=== PATIENT | male | born 1955 | race Caucasian/White ===

== ENCOUNTER 2020-09-12 18:31 | Inpatient (IN) | payer MEDICAID, OTHER ==
[~2020-09-12] VITALS: Ht 172.7 cm; Wt 100.8 kg
--- NOTE | 2020-09-12 18:55 | NUR ---
received report from EFREN Howard. patient c/o abdominal and lower extremities swelling x 3 weeks. Hx of CHF. non complaint with his medication.
[2020-09-12] MEDS ORDERED: ONDANSETRON 2MG/ML, 2ML IVPush PRN (19:00)
[2020-09-12] MEDS ORDERED: PROMETHAZINE 25 MG/ML, 1ML IM PRN (19:00)
[2020-09-12] MEDS ORDERED: ONDANSETRON ODT 4 MG PO PRN (19:00)
[2020-09-12] MEDS ORDERED: OXYcodone IR 5MG TABLET PO PRN (19:00)
[2020-09-12] MEDS ORDERED: BISACODYL 10 MG SUPP PR PRN (19:00)
[2020-09-12] MEDS ORDERED: ACETAMINOPHEN 325 MG TABLET PO PRN (19:00)
[2020-09-12] MEDS ORDERED: DOCUSATE 100 MG CAPSULE PO PRN (19:00)
[2020-09-12] MEDS ORDERED: hydrALAzine 20 MG/ML, 1ML IVPush PRN (19:00)
[2020-09-12] MEDS ORDERED: FUROSEMIDE 20 MG/2 ML IV ONE (19:00)
[2020-09-12] MEDS ORDERED: POLYETHYLENE GLYCOL 17 GM PACKET PO PRN (19:00)
[2020-09-12 19:18] LABS: BASOPHILS % (AUTO) 1 % (0-1); EOSINOPHILS % (AUTO) 2 % (1-7); LYMPHOCYTES % (AUTO) 18 % (22-44); MEAN CORPUSCULAR HEMOGLOBIN 33.2 pg (27.5-34.5); MEAN CORPUSCULAR HGB CONC 32.6 g/dL (33.2-36.2); MEAN PLATELET VOLUME 8.7 fL (7.4-10.4); MONOCYTES % (AUTO) 13 % (2-9); NEUTROPHILS % (AUTO) 66 % (42-75); PLATELET COUNT 205 x10^3/uL (130-400); RED BLOOD COUNT 4.42 x10^6/uL (4.38-5.82); RED CELL DISTRIBUTION WIDTH 15.7 % (9.4-14.8)
[2020-09-12 19:20] LABS: MD NO
[2020-09-12 19:29] LABS: ALANINE AMINOTRANSFERASE 59 U/L (12-78); ALBUMIN 2.9 g/dL (3.4-5.0); ANION GAP 6 mmol/L (5-15); CALCIUM 8.4 mg/dL (8.5-10.1); CHLORIDE 112 mmol/L (98-107); CREATININE 2.68 mg/dL (0.7-1.3)
[2020-09-12 19:33] LABS: ALKALINE PHOSPHATASE 116 U/L (45-117); BILIRUBIN,TOTAL 0.6 mg/dL (0.2-1.0); TOTAL PROTEIN 6.5 g/dL (6.4-8.2)
[2020-09-12 19:35] LABS: TROPONIN I 0.529 ng/mL (0.000-0.045)
--- NOTE | 2020-09-12 19:50 | NUR ---
bed assigned. report to EFREN Ramires.
[2020-09-12 20:10] VITALS: BP 134/80
[2020-09-12] MEDS ORDERED: ENOXAPARIN 30 MG/0.3 ML SQ SCH (20:30)
[2020-09-12] MEDS: ATORVASTATIN 80 MG TABLET PO SCH (21:30)
[2020-09-12] MEDS: APIXABAN 5 MG TABLET PO SCH (21:30)
[2020-09-12] MEDS ORDERED: APIX5TAB PO (21:48)
[2020-09-12] MEDS ORDERED: METO25TA91 PO (21:48)
[2020-09-12] MEDS ORDERED: LOSA25TA25 PO (21:48)
[2020-09-12] MEDS ORDERED: ATOR80TA PO (21:48)
[2020-09-12] MEDS ORDERED: AMIO400T5 PO (21:48)
[2020-09-12] MEDS ORDERED: CLOP75TA PO (21:48)
[2020-09-12] MEDS ORDERED: DIGO125T85 PO (21:48)
[2020-09-12] MEDS ORDERED: NITR0.4T28 SL (21:48)
[2020-09-12 23:25] VITALS: BP_SYST 158; BP_SYST 164; BP_DIAS 111; BP_DIAS 113
[2020-09-13 00:52] VITALS: BP 150/95
[2020-09-13 01:13] LABS: TROPONIN I 0.386 ng/mL (0.000-0.045)
[2020-09-13 04:45] LABS: BASOPHILS % (AUTO) 1 % (0-1); EOSINOPHILS % (AUTO) 2 % (1-7); LYMPHOCYTES % (AUTO) 23 % (22-44); MEAN CORPUSCULAR HEMOGLOBIN 33.7 pg (27.5-34.5); MEAN CORPUSCULAR HGB CONC 33.5 g/dL (33.2-36.2); MEAN PLATELET VOLUME 8.7 fL (7.4-10.4); MONOCYTES % (AUTO) 15 % (2-9); NEUTROPHILS % (AUTO) 59 % (42-75); PLATELET COUNT 195 x10^3/uL (130-400); RED BLOOD COUNT 4.24 x10^6/uL (4.38-5.82); RED CELL DISTRIBUTION WIDTH 15.6 % (9.4-14.8)
[2020-09-13 04:48] LABS: MD NO
[2020-09-13 04:56] LABS: CALCIUM 8.5 mg/dL (8.5-10.1); CHLORIDE 110 mmol/L (98-107)
[2020-09-13 05:07] LABS: ALANINE AMINOTRANSFERASE 57 U/L (12-78); ALBUMIN 2.8 g/dL (3.4-5.0); ALKALINE PHOSPHATASE 108 U/L (45-117); ANION GAP 8 mmol/L (5-15); BILIRUBIN,TOTAL 0.9 mg/dL (0.2-1.0); CHOL/HDL RATIO 4.9; CHOLESTEROL, TOTAL 157 mg/dL (140-239); CREATININE 2.61 mg/dL (0.7-1.3); HDL CHOL % 20 % (26-37); HDL CHOLESTEROL (DIRECT) 32 mg/dL (40-60); LDL CHOLESTEROL,CALCULATED 113 mg/dL (54-169); LDL/HDL RATIO 3.5 (0.5-3.0); TOTAL PROTEIN 5.9 g/dL (6.4-8.2); TRIGLYCERIDES 60 mg/dL (50-200); TROPONIN I 0.321 ng/mL (0.000-0.045); VLDL CHOLESTEROL 12 mg/dL (0-25)
[2020-09-13] MEDS: METOPROLOL TARTRATE 25 MG TAB PO SCH ×2 (05:21→17:24)
[2020-09-13 07:16] VITALS: BP 161/105
[2020-09-13 07:27] LABS: TROPONIN I 0.347 ng/mL (0.000-0.045)
[2020-09-13] MEDS ORDERED: FUROSEMIDE 20 MG/2 ML IV SCH (09:00)
[2020-09-13] MEDS ORDERED: FUROSEMIDE 40 MG/4 ML IV SCH (09:00)
[2020-09-13] MEDS: CLOPIDOGREL 75 MG TABLET PO SCH (12:26)
[2020-09-13] MEDS: APIXABAN 5 MG TABLET PO SCH ×3 (12:27→21:32)
[2020-09-13 13:18] VITALS: BP 161/100
[2020-09-13 19:23] VITALS: BP 144/91
[2020-09-13] MEDS: ATORVASTATIN 80 MG TABLET PO SCH ×2 (21:00→21:32)
[2020-09-13] MEDS: AMIODARONE 200 MG TABLET PO SCH ×2 (21:00→21:33)
[2020-09-13] MEDS: FUROSEMIDE 40 MG/4 ML IV SCH (21:32)
[2020-09-14 02:32] VITALS: BP 150/85
[2020-09-14 04:52] LABS: BASOPHILS % (AUTO) 1 % (0-1); EOSINOPHILS % (AUTO) 2 % (1-7); LYMPHOCYTES % (AUTO) 18 % (22-44); MEAN CORPUSCULAR HEMOGLOBIN 33.8 pg (27.5-34.5); MEAN CORPUSCULAR HGB CONC 33.7 g/dL (33.2-36.2); MEAN PLATELET VOLUME 8.8 fL (7.4-10.4); MONOCYTES % (AUTO) 15 % (2-9); NEUTROPHILS % (AUTO) 65 % (42-75); PLATELET COUNT 209 x10^3/uL (130-400); RED BLOOD COUNT 4.51 x10^6/uL (4.38-5.82); RED CELL DISTRIBUTION WIDTH 15.6 % (9.4-14.8)
[2020-09-14 04:53] LABS: MD NO
[2020-09-14 04:58] LABS: ANION GAP 6 mmol/L (5-15); CALCIUM 8.8 mg/dL (8.5-10.1); CHLORIDE 106 mmol/L (98-107); CREATININE 2.65 mg/dL (0.7-1.3)
[2020-09-14] MEDS: METOPROLOL TARTRATE 25 MG TAB PO SCH ×3 (05:03→21:17)
[2020-09-14 07:58] VITALS: BP 156/103
[2020-09-14] MEDS: APIXABAN 5 MG TABLET PO SCH ×2 (09:00→21:15)
[2020-09-14] MEDS: LOSARTAN 25MG TABLET PO SCH (09:00)
[2020-09-14] MEDS: AMIODARONE 200 MG TABLET PO SCH ×2 (09:00→21:00)
[2020-09-14] MEDS: CLOPIDOGREL 75 MG TABLET PO SCH (09:00)
[2020-09-14] MEDS: DIGOXIN 0.125 MG TABLET PO SCH (09:00)
[2020-09-14] MEDS: FUROSEMIDE 40 MG/4 ML IV SCH ×2 (09:38→21:14)
[2020-09-14 11:11] VITALS: BP 147/100
[2020-09-14 12:46] VITALS: BP 145/104
[2020-09-14] MEDS ORDERED: FUROSEMIDE 40 MG/4 ML IV ONE (15:00)
[2020-09-14 18:46] VITALS: BP 152/86
[2020-09-14] MEDS: ATORVASTATIN 80 MG TABLET PO SCH (21:15)
[2020-09-15 00:38] VITALS: BP 143/86
[2020-09-15 04:46] LABS: ANION GAP 5 mmol/L (5-15); CALCIUM 8.4 mg/dL (8.5-10.1); CHLORIDE 107 mmol/L (98-107)
[2020-09-15] MEDS: METOPROLOL TARTRATE 25 MG TAB PO SCH (05:48)
[2020-09-15] MEDS ORDERED: FURO-92 PO (07:10)
[2020-09-15] MEDS ORDERED: POTA20TA14 PO (07:11)
[2020-09-15 07:22] VITALS: BP 138/88
[2020-09-15] MEDS: FUROSEMIDE 40 MG/4 ML IV SCH (08:52)
[2020-09-15] MEDS: DIGOXIN 0.125 MG TABLET PO SCH (08:54)
[2020-09-15] MEDS: LOSARTAN 25MG TABLET PO SCH (08:54)
[2020-09-15] MEDS: APIXABAN 5 MG TABLET PO SCH (08:54)
[2020-09-15] MEDS: CLOPIDOGREL 75 MG TABLET PO SCH (08:54)
[2020-09-15] MEDS: AMIODARONE 200 MG TABLET PO SCH (08:54)
== END 2020-09-15 10:05 | disposition home or self-care (01) | DRG 280 ==
LOC: ED 18:35 → EDIP 18:42 → ED 19:30 → 5SO 20:05 → DCLOUNGE 09-15 09:55
PROVIDERS: ADMIT Internal Medicine; ATTEND Family Medicine
DX: I13.0 Hypertensive heart and chronic kidney disease with heart failure and stage 1 through stage 4 chronic kidney disease, or unspecified chronic kidney disease (principal); I21.A1 Myocardial infarction type 2; I50.43 Acute on chronic combined systolic (congestive) and diastolic (congestive) heart failure; D68.69 Other thrombophilia; I47.1 Supraventricular tachycardia; N17.9 Acute kidney failure, unspecified; F12.90 Cannabis use, unspecified, uncomplicated; E78.5 Hyperlipidemia, unspecified; I25.110 Atherosclerotic heart disease of native coronary artery with unstable angina pectoris; I48.0 Paroxysmal atrial fibrillation; N18.30 Chronic kidney disease, stage 3 unspecified; Z79.02 Long term (current) use of antithrombotics/antiplatelets; Z87.891 Personal history of nicotine dependence; Z91.19 Patient's noncompliance with other medical treatment and regimen; R94.6 Abnormal results of thyroid function studies
CPT/HCPCS: 36415; 71045; 80048; 80053; 80061; 83036; 83735; 83880; 84100; 84443; 84484; 85025; 93005; 93306; 96374; 99285; G0378; J1940